=== PATIENT | female | born 1955 | race Caucasian/White ===

== ENCOUNTER → 2017-03-11 | Outpatient (CLI) | payer MEDICARE | LOC: CT 12:32 | DX: F17.210 Nicotine dependence, cigarettes, uncomplicated (principal) | CPT/HCPCS: G0297 ==

== ENCOUNTER → 2021-10-09 | Outpatient (CLI) | payer BC | LOC: EXRD 14:21 | DX: R22.2 Localized swelling, mass and lump, trunk (principal) | CPT/HCPCS: 76536 ==